=== PATIENT | female | born 1950 | race African-American/Black ===

== ENCOUNTER 2019-03-29 20:26 | Emergency (ER) | payer SELFPAY ==
[2019-03-29] MEDS ORDERED: Sodium Chloride 0.9% 2.5 ML Syringe FLUSH PRN (21:04)
[2019-03-29] MEDS ORDERED: Sodium Chloride 0.9% 10 ML Syringe FLUSH PRN (21:04)
[2019-03-29] MEDS ORDERED: Pantoprazole 40 MG Vial IVPUSH ONE (21:04)
[2019-03-29] MEDS ORDERED: Ketorolac 30 MG/ML SDV IVPUSH ONE (21:04)
[2019-03-29] MEDS ORDERED: Sodium Chloride 0.9% 1,000 ML IV ONE (21:04)
[2019-03-29] MEDS ORDERED: Sodium Chloride 0.9% 20 ML SDV FLUSH STA (21:06)
--- NOTE | 2019-03-29 21:09 | EDM.PDOC ---
ED HPI GENERAL MEDICAL PROBLEM - General Chief Complaint: Abdominal Pain Stated Complaint: PT HAS STOMACH PAIN Time Seen by Provider: 03/29/19 20:38 - History of Present Illness INITIAL COMMENTS - FREE TEXT/NARRATIVE: HISTORY AND PHYSICAL: History of present illness: The patient is a 68-year-old female who does not have a local provider and is visiting here from [facility], she arrived here 2 weeks ago and travels back and forth frequently, and presents with upper abdominal pain for the last 3-Days which is associated with no appetite and early satiety as well as a generalized headache. She's had normal bowel movements that are not black or bloody and no urinary complaints and no flank pain. She has no lower abdominal complaints and has no GI or history. She has only had 1 abdominal surgical history of a . She has a history of type 2 diabetes and hypertension and she took her last dose of metformin today and needs a new prescription. The patient has a history of hypertension but according to the daughter is not on any medication and has not been followed for that and she has the type 2 diabetes for which she only takes the metformin. The daughter is concerned about her above complaints as well as her diabetic management as she says that her fasting blood sugar since she has arrived here from [facility] has been in the low 200s. She says that is not been well controlled for a long period of time. The patient states that she does watch her diet but she cannot recall the last time she had any blood work for her diabetes. She has no polyuria or polydipsia and no dysuria or hematuria. The patient says the pain she is experiencing is in her upper abdomen and does not radiate to the lower abdomen and does not localize right or left but is more epigastric. The daughter says she has had this in the past and saw her provider in [facility] did not do any testing or endoscopy and told her that she had an ulcer. She was not prescribed medications at that time and currently does not take any medications for that. She has not tried any [id number] medications for her discomfort. The patient also says that after she eats she feels very full but she is not nauseated and she gets full more easily and then she feels short of breath. Currently in the ED at rest she does not feel short of breath. The dyspnea is somewhat vague when you asked the patient and it seems to be more associated with her eating. There is nothing new or different about this pain and the patient says it is similar to she was seen in the past in location and character. The daughter says she did not complain of the pain except for the last 3 days. It does not radiate to her back. Review of systems: As per history of present illness and below otherwise all systems reviewed and negative. Past medical history: As per history of present illness and as reviewed below otherwise noncontributory. Surgical history: As per history of present illness and as reviewed below otherwise noncontributory. Social history: No reported history of drug or alcohol abuse. Family history: As per history of present illness and as reviewed below otherwise noncontributory. Physical exam: General: Well-developed well-nourished female who moves easily in the ED without distress and vital signs are noted by me HEENT: Atraumatic, normocephalic, negative for conjunctival pallor or scleral icterus, mucous membranes moist, throat clear, neck supple, nontender, trachea midline. Lungs: Clear to auscultation, breath sounds equal bilaterally, chest nontender. Heart: S1S2, regular rate and rhythm no overt murmurs Abdomen: Soft, nondistended, bowel sounds are hypoactive and there is no tympany on percussion. There is mild tenderness in the epigastrium on deep palpation but no right upper or left upper quadrant tenderness and no other abdominal discomfort on palpation. She does have a old well-healed midline infraumbilical scar Negative for masses or hepatosplenomegaly. Negative for costovertebral tenderness. Pelvis: Stable nontender. Genitourinary: Deferred. Rectal: Deferred. Extremities: Atraumatic, negative for cords or calf pain. Neurovascular unremarkable. Neuro: Awake, alert, oriented. Cranial nerves II through XII unremarkable. Cerebellum unremarkable. Motor and sensory unremarkable throughout. Exam nonfocal. Diagnostics: EKG UA with reflex CBC CMP amylase lipase hemoglobin A1c chest x-ray CT scan of the abdomen and pelvis Therapeutics: IV fluids Protonix Toradol I discussed all testing results with the patient and daughter at bedside. She is aware that we find no lab abnormalities or CAT scan abnormalities to understand why she is having this pain and she is also aware that her diabetes is under good control with a hemoglobin A1c of 6.5. I will refill her prescription for metformin and also start her on Protonix and Carafate as I discussed with them I cannot diagnose ulcer disease and as she was told this in the past she may still have that present causing her discomfort. I've advised close follow-up in the clinic for further testing including endoscopy and/or HIDA scan Impression: Epigastric abdominal pain Type 2 diabetes, needs medication refill Definitive disposition and diagnosis as appropriate pending reevaluation and review of above. Abdomen Pain Score (Numeric/FACES): 10 - Related Data Allergies Allergy/AdvReac Type Severity Reaction Status Date / Time No Known Allergies Allergy Verified 03/29/19 20:44 Home Meds: Home Meds metFORMIN [Glucophage] 1,000 mg PO BID 03/29/19 [History] Past Medical History HEENT History: Reports: None Cardiovascular History: Reports: None Respiratory History: Reports: None Gastrointestinal History: Reports: None Genitourinary History: Reports: None [employer] History: Reports: Musculoskeletal History: Reports: Arthritis Neurological History: Reports: None Psychiatric History: Reports: None Endocrine/Metabolic History: Reports: Diabetes, Type II Insulin Pump Model and Clinical Services Assistant: None Hematologic History: Reports: None Immunologic History: Reports: None Oncologic (Cancer) History: Reports: None Dermatologic History: Reports: None - Infectious Disease History Infectious Disease History: Reports: None - Past Surgical History Head Surgeries/Procedures: Reports: None Female Surgical History: Reports: Section Social & Family History - Family History Family Medical History: Noncontributory - Tobacco Use Smoking Status *Q: Never Smoker - Caffeine Use Caffeine Use: Reports: Tea - Recreational Drug Use Recreational Drug Use: No ED ROS GENERAL - Review of Systems Review Of Systems: ROS reveals no pertinent complaints other than HPI. ED EXAM, GENERAL - Physical Exam Exam: See Below (See dictation) Course - Vital Signs Last Recorded V/S: Last Vital Signs Temp 36.2 C 03/29/19 22:24 Pulse 99 03/29/19 22:24 Resp 18 03/29/19 22:24 BP 163/65 H 03/29/19 22:24 Pulse Ox 99 03/29/19 22:24 - Orders/Labs/Meds Orders: Active Orders 24 hr Category Date Time Status Blood Glucose Check, Bedside [RC] ONETIME Care 03/29/19 21:09 Active EKG Documentation Completion [RC] STAT Care 03/29/19 21:09 Active Sodium Chloride 0.9% [Saline Flush] Med 03/29/19 21:04 Active 10 ml FLUSH ASDIRECTED PRN Sodium Chloride 0.9% [Saline Flush] Med 03/29/19 21:04 Active 2.5 ml FLUSH ASDIRECTED PRN Saline Lock Insert [OM.PC] Stat Oth 03/29/19 21:03 Ordered Medication Orders Sodium Chloride (Saline Flush) 10 ml FLUSH ASDIRECTED PRN PRN Reason: Keep Vein Open Sodium Chloride (Saline Flush) 2.5 ml FLUSH ASDIRECTED PRN PRN Reason: Keep Vein Open Labs: Laboratory Tests 03/29/19 03/29/19 03/29/19 Range/Units 20:40 21:12 21:12 WBC 9.41 (4.0-11.0) K/uL RBC 4.27 L (4.30-5.90) M/uL Hgb 11.9 L (12.0-16.0) g/dL Hct 36.5 (36.0-46.0) % MCV 85.5 (80.0-98.0) fL MCH 27.9 (27.0-32.0) pg MCHC 32.6 (31.0-37.0) g/dL RDW Std Deviation 40.5 (28.0-62.0) fl RDW Coeff of Sheree 13 (11.0-15.0) % Plt Count 239 (150-400) K/uL MPV 11.40 (7.40-12.00) fL Neut % (Auto) 60.6 (48.0-80.0) % Lymph % (Auto) 28.7 (16.0-40.0) % Logan % (Auto) 8.2 (0.0-15.0) % Eos % (Auto) 2.3 (0.0-7.0) % Baso % (Auto) 0.2 (0.0-1.5) % Neut # (Auto) 5.7 (1.4-5.7) K/uL Lymph # (Auto) 2.7 H (0.6-2.4) K/uL Logan # (Auto) 0.8 (0.0-0.8) K/uL Eos # (Auto) 0.2 (0.0-0.7) K/uL Baso # (Auto) 0.0 (0.0-0.1) K/uL Nucleated RBC % 0.0 /100WBC Nucleated RBCs # 0 K/uL Sodium 141 (136-145) mmol/L Potassium 3.7 (3.5-5.1) mmol/L Chloride 102 (98-107) mmol/L Carbon Dioxide 27.8 (21.0-32.0) mmol/L BUN 18 (7.0-18.0) mg/dL Creatinine 0.9 (0.6-1.0) mg/dL Est Cr Clr Drug Dosing 53.83 mL/min Estimated GFR (MDRD) > 60.0 ml/min Glucose 148 H (74-106) mg/dL POC Glucose (60-110) mg/dL Hemoglobin A1c (4.5-6.2) % Calcium 9.3 (8.5-10.1) mg/dL Total Bilirubin 0.4 (0.2-1.0) mg/dL AST 9 L (15-37) IU/L ALT 17 (14-63) IU/L Alkaline Phosphatase 106 (46-116) U/L Total Protein 7.7 (6.4-8.2) g/dL Albumin 3.6 (3.4-5.0) g/dL Globulin 4.1 H (2.6-4.0) g/dL Albumin/Globulin Ratio 0.9 (0.9-1.6) Amylase 61 (25-115) U/L Lipase 143 (73-393) U/L Urine Color YELLOW Urine Appearance CLEAR Urine pH 5.5 (5.0-8.0) Ur Specific [place] 1.025 (1.001-1.035) Urine Protein NEGATIVE (NEGATIVE) mg/dL Urine Glucose (UA) NEGATIVE (NEGATIVE) mg/dL Urine Ketones NEGATIVE (NEGATIVE) mg/dL Urine Occult Blood NEGATIVE (NEGATIVE) Urine Nitrite NEGATIVE (NEGATIVE) Urine Bilirubin NEGATIVE (NEGATIVE) Urine Urobilinogen 0.2 (<2.0) EU/dL Ur Leukocyte Esterase NEGATIVE (NEGATIVE) 03/29/19 03/29/19 Range/Units 21:12 21:12 WBC (4.0-11.0) K/uL RBC (4.30-5.90) M/uL Hgb (12.0-16.0) g/dL Hct (36.0-46.0) % MCV (80.0-98.0) fL MCH (27.0-32.0) pg MCHC (31.0-37.0) g/dL RDW Std Deviation (28.0-62.0) fl RDW Coeff of Sheree (11.0-15.0) % Plt Count (150-400) K/uL MPV (7.40-12.00) fL Neut % (Auto) (48.0-80.0) % Lymph % (Auto) (16.0-40.0) % Logan % (Auto) (0.0-15.0) % Eos % (Auto) (0.0-7.0) % Baso % (Auto) (0.0-1.5) % Neut # (Auto) (1.4-5.7) K/uL Lymph # (Auto) (0.6-2.4) K/uL Logan # (Auto) (0.0-0.8) K/uL Eos # (Auto) (0.0-0.7) K/uL Baso # (Auto) (0.0-0.1) K/uL Nucleated RBC % /100WBC Nucleated RBCs # K/uL Sodium (136-145) mmol/L Potassium (3.5-5.1) mmol/L Chloride (98-107) mmol/L Carbon Dioxide (21.0-32.0) mmol/L BUN (7.0-18.0) mg/dL Creatinine (0.6-1.0) mg/dL Est Cr Clr Drug Dosing mL/min Estimated GFR (MDRD) ml/min Glucose (74-106) mg/dL POC Glucose 129 H (60-110) mg/dL Hemoglobin A1c 6.5 H (4.5-6.2) % Calcium (8.5-10.1) mg/dL Total Bilirubin (0.2-1.0) mg/dL AST (15-37) IU/L ALT (14-63) IU/L Alkaline Phosphatase (46-116) U/L Total Protein (6.4-8.2) g/dL Albumin (3.4-5.0) g/dL Globulin (2.6-4.0) g/dL Albumin/Globulin Ratio (0.9-1.6) Amylase (25-115) U/L Lipase (73-393) U/L Urine Color Urine Appearance Urine pH (5.0-8.0) Ur Specific [place] (1.001-1.035) Urine Protein (NEGATIVE) mg/dL Urine Glucose (UA) (NEGATIVE) mg/dL Urine Ketones (NEGATIVE) mg/dL Urine Occult Blood (NEGATIVE) Urine Nitrite (NEGATIVE) Urine Bilirubin (NEGATIVE) Urine Urobilinogen (<2.0) EU/dL Ur Leukocyte Esterase (NEGATIVE) Meds: Medications Generic Name Dose Route Start Last Admin Trade Name Freq PRN Reason Stop Dose Admin Sodium Chloride 10 ml 03/29/19 21:04 Saline Flush FLUSH ASDIRECTED PRN Keep Vein Open Sodium Chloride 2.5 ml 03/29/19 21:04 Saline Flush FLUSH ASDIRECTED PRN Keep Vein Open Discontinued Medications Generic Name Dose Route Start Last Admin Trade Name Freq PRN Reason Stop Dose Admin Sodium Chloride 1,000 mls @ 999 mls/hr 03/29/19 21:04 03/29/19 21:15 Normal Saline IV 03/29/19 22:04 999 mls/hr STAT ONE Administration Iopamidol 100 ml 03/29/19 22:14 03/29/19 22:14 Isovue Multipack-370 (76%) IVPUSH 03/29/19 22:15 100 ml ONETIME STA Administration Ketorolac Tromethamine 30 mg 03/29/19 21:04 03/29/19 21:16 Toradol IVPUSH 03/29/19 21:05 30 mg ONETIME ONE Administration Pantoprazole Sodium 80 mg 03/29/19 21:04 03/29/19 21:16 Protonix Iv IVPUSH 03/29/19 21:05 80 mg .BOLUS ONE Administration Sodium Chloride 20 ml 03/29/19 21:06 03/29/19 21:16 Normal Saline FLUSH 03/29/19 21:07 20 ml NOW STA Administration Departure - Departure Time of Disposition: 23:03 Disposition: Home, Self-Care 01 Condition: Good Clinical Impression: Abdominal pain Qualifiers: Abdominal location: epigastric Qualified Code(s): R10.13 - Epigastric pain - Discharge Information Referrals: PCP,None [Primary Care Provider] - Forms: ED Department Discharge Additional Instructions: The following information is given to patients seen in the emergency department who are being discharged to home. This information is to outline your options for follow-up care. We provide all patients seen in our emergency department with a follow-up referral. The need for follow-up, as well as the timing and circumstances, are variable depending upon the specifics of your emergency department visit. If you don't have a primary care physician on staff, we will provide you with a referral. We always advise you to contact your personal physician following an emergency department visit to inform them of the circumstance of the visit and for follow-up with them and/or the need for any referrals to a consulting specialist. The emergency department will also refer you to a specialist when appropriate. This referral assures that you have the opportunity for followup care with a specialist. All of these measure are taken in an effort to provide you with optimal care, which includes your followup. Under all circumstances we always encourage you to contact your private physician who remains a resource for coordinating your care. When calling for followup care, please make the office aware that this follow-up is from your recent emergency room visit. If for any reason you are refused follow-up, please contact the [facility] emergency department at and ask to speak to the emergency department charge nurse. [facility] Primary care- Internal Medicine and Family [place] [id number] [place] [id number] [facility] Specialty Care-General Surgery Professional Building [address] [place] [id number] Please call our clinics and schedule follow-up in primary care for management of your diabetes as well as with our surgery clinic to have further testing for this abdominal pain and possible upper endoscopy. Please take medications as prescribed and try to eat a low fat diet avoiding caffeinated products and spicy foods. Return to ER as needed and as discussed - My Orders Last 24 Hours: My Active Orders 03/29/19 21:03 Saline Lock Insert [OM.PC] Stat 03/29/19 21:04 Sodium Chloride 0.9% [Saline Flush] 10 ml FLUSH ASDIRECTED PRN Sodium Chloride 0.9% [Saline Flush] 2.5 ml FLUSH ASDIRECTED PRN 03/29/19 21:09 Blood Glucose Check, Bedside [RC] ONETIME EKG Documentation Completion [RC] STAT - Assessment/Plan Last 24 Hours: My Active Orders 03/29/19 21:03 Saline Lock Insert [OM.PC] Stat 03/29/19 21:04 Sodium Chloride 0.9% [Saline Flush] 10 ml FLUSH ASDIRECTED PRN Sodium Chloride 0.9% [Saline Flush] 2.5 ml FLUSH ASDIRECTED PRN 03/29/19 21:09 Blood Glucose Check, Bedside [RC] ONETIME EKG Documentation Completion [RC] STAT
[2019-03-29 21:40] LABS: HEMOGLOBIN A1C 6.5 % (4.5-6.2)
--- NOTE | 2019-03-29 21:43 | CR ---
Indication: Abdominal pain, shortness of breath Technique: Chest 1 view Comparison: None Findings/Impression: Cardiovascular and mediastinum: Heart size and vasculature are normal in caliber and appearance. Mediastinum is within normal limits. Lungs and pleural space: Lungs are clear. No sign of infiltrate or mass. No sign of pleural effusion. No pneumothorax. Bones and soft tissues: No significant findings. Dictated by Yamini Shaffer MD @ Mar 29 2019 9:40PM Signed by Dr. Yamini Shaffer @ Mar 29 2019 9:41PM
[2019-03-29 21:45] LABS: BLOOD UREA NITROGEN,BUN 18 mg/dL (7.0-18.0); CARBON DIOXIDE,CO2 27.8 mmol/L (21.0-32.0); CHLORIDE,CL 102 mmol/L (98-107); GLUCOSE RANDOM 148 mg/dL (74-106); LIPASE 143 U/L (73-393); POTASSIUM,K 3.7 mmol/L (3.5-5.1); SODIUM,NA 141 mmol/L (136-145)
[2019-03-29] MEDS ORDERED: Iopamidol 755 MG/ML 500 ML Multipack Bottle IVPUSH STA (22:14)
--- NOTE | 2019-03-29 22:47 | CT ---
INDICATION: Abdominal pain after eating, early satiety. TECHNIQUE: CT abdomen and pelvis acquired with 100 cc Isovue 370 intravenous contrast. COMPARISON: None. FINDINGS: Lower chest: Basilar discoid atelectasis. Liver: Normal in contour without focal lesion. Accessory right hepatic vein noted. Gallbladder and bile ducts: Unremarkable. No stones or inflammation. No biliary dilatation. Pancreas: Unremarkable. No mass or inflammation. Spleen: Unremarkable. Normal in size. No masses. Adrenal glands: Slight fusiform prominence of the left adrenal gland. Kidneys: Unremarkable. No masses, stones, or hydronephrosis. GI tract: The stomach is unremarkable. There are no dilated loops of large or small intestine. No localized inflammation. Vasculature: Unremarkable. Pelvis: Unremarkable. Bones: Unremarkable for age. IMPRESSION: Unremarkable abdomen and pelvis CT. No acute findings to explain the patient`s abdominal pain. Please note that all CT scans at this facility use dose modulation, iterative reconstruction, and/or weight-based dosing when appropriate to reduce radiation dose to as low as reasonably achievable. Dictated by Hira Dudley MD @ Mar 29 2019 10:37PM Signed by Dr. Hira Dudley @ Mar 29 2019 10:47PM
== END 2019-03-29 23:10 | disposition home or self-care (01) ==
LOC: MW.ED 20:26
DX: R10.13 Epigastric pain (principal); E11.9 Type 2 diabetes mellitus without complications; Z76.0 Encounter for issue of repeat prescription; I10 Essential (primary) hypertension
CPT/HCPCS: 36415; 71045; 74177; 80053; 81003; 82150; 82962; 83036; 83690; 85025; 93005; 96361; 96374; 96375; 99284; C9113; J1885; J7040; Q9967

== ENCOUNTER 2019-05-06 20:19 | Emergency (ER) | payer SELFPAY ==
[~2019-05-06 20:19] MED LIST: Sodium Chloride 0.9% 10 ML Syringe FLUSH PRN; Sodium Chloride 0.9% 2.5 ML Syringe FLUSH PRN
[2019-05-06] MEDS ORDERED: Ketorolac 30 MG/ML SDV IVPUSH ONE (20:39)
--- NOTE | 2019-05-06 20:40 | EDM.PDOC ---
ED HPI GENERAL MEDICAL PROBLEM - General Chief Complaint: General Stated Complaint: CHEST PAIN Time Seen by Provider: 05/06/19 20:36 Source of Information: Reports: Patient, Family History Limitations: Reports: No Limitations - History of Present Illness INITIAL COMMENTS - FREE TEXT/NARRATIVE: HISTORY AND PHYSICAL: History of present illness: Patient is a 68-year-old female presents to the ED with daughter for chest pain. Patient is visiting from [place], daughter is interpreting for her. Past medical history significant for hypertension and T2DM. Daughter states she has had chest pain for the past 2 days, she is complaining of pain all around her chest that is worse with deep breaths. She reports shortness of breath but this is not new and not worsened. She has had a cough. Denies fevers, chills, vomiting, abdominal pain, diarrhea. Daughter is also concerned about chronic complaints including headache and left wrist pain. Patient states she has history of arthritis, was receiving treatment for his in [place] but does not know what she was taking. Review of systems: As per history of present illness and below otherwise all systems reviewed and negative. Past medical history: As per history of present illness and as reviewed below otherwise noncontributory. Surgical history: As per history of present illness and as reviewed below otherwise noncontributory. Social history: No reported history of drug or alcohol abuse. Family history: As per history of present illness and as reviewed below otherwise noncontributory. Physical exam: General: Patient sitting comfortably in no acute distress and nontoxic appearing HEENT: Atraumatic, normocephalic, pupils reactive, negative for conjunctival pallor or scleral icterus, mucous membranes moist, throat clear, neck supple, nontender, trachea midline. No meningeal signs. Lungs: Clear to auscultation, breath sounds equal bilaterally, pain to palpation of anterior and posterior chest wall. Heart: S1S2, regular, negative for clicks, rubs, or overt murmur. Abdomen: Soft, nondistended, nontender. Negative for masses or hepatosplenomegaly. Negative for costovertebral tenderness. No rigidity, rebound , guarding. Pelvis: Stable nontender. Genitourinary: Deferred. Rectal: Deferred. Extremities: Atraumatic, negative for cords or calf pain. Neurovascular unremarkable. Neuro: Awake, alert, oriented. Cranial nerves II through XII unremarkable. Cerebellum unremarkable. Motor and sensory unremarkable throughout. Exam nonfocal. Notes: Patient reports pain improved with toradol. We discussed admitting to observation for chest pain r/o ACS. Patient declined admission at this time and understands my concerns. I advised follow up in the clinic to address chronic conditions as she will be in the [place] for the next 5 months. Diagnostics: CBC, CMP, troponin, EKG, CXR Therapeutics: 1L NS IV 30mg Toradol IV Prescriptions: Diclofenac Impression: Chest pain Plan: Take medication as instructed Follow up with primary care provider Return to ED as needed as discussed Definitive disposition and diagnosis as appropriate pending reevaluation and review of above. 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: Musculoskeletal History: Reports: Arthritis Neurological History: Reports: None Psychiatric History: Reports: None Endocrine/Metabolic History: Reports: Diabetes, Type II Insulin Pump Model and Director Volunteer Services: None Hematologic History: Reports: None Immunologic History: Reports: None Oncologic (Cancer) History: Reports: None Dermatologic History: Reports: None - Infectious Disease History Infectious Disease History: Reports: None - Past Surgical History Head Surgeries/Procedures: Reports: None Cardiovascular Surgical History: Reports: None Female Surgical History: Reports: Section Endocrine Surgical History: Reports: None Musculoskeletal Surgical History: Reports: None Social & Family History - Family History Family Medical History: Noncontributory - Tobacco Use Smoking Status *Q: Never Smoker Second Hand Smoke Exposure: No - Caffeine Use Caffeine Use: Reports: None - Recreational Drug Use Recreational Drug Use: No ED ROS GENERAL - Review of Systems Review Of Systems: ROS reveals no pertinent complaints other than HPI. ED EXAM, GENERAL - Physical Exam Exam: See Below (see dictation) Course - Vital Signs Last Recorded V/S: Last Vital Signs Temp 96.3 F 05/06/19 20:23 Pulse 95 05/06/19 20:23 Resp 18 05/06/19 20:23 BP 124/107 H 05/06/19 20:23 Pulse Ox 100 05/06/19 20:23 - Orders/Labs/Meds Orders: Active Orders 24 hr Category Date Time Status EKG Documentation Completion [RC] STAT Care 05/06/19 20:19 Active Sodium Chloride 0.9% [Saline Flush] Med 05/06/19 20:19 Active 10 ml FLUSH ASDIRECTED PRN Sodium Chloride 0.9% [Saline Flush] Med 05/06/19 20:19 Active 2.5 ml FLUSH ASDIRECTED PRN Saline Lock Insert [OM.PC] Stat Oth 05/06/19 20:19 Ordered Medication Orders Sodium Chloride (Saline Flush) 10 ml FLUSH ASDIRECTED PRN PRN Reason: Keep Vein Open Sodium Chloride (Saline Flush) 2.5 ml FLUSH ASDIRECTED PRN PRN Reason: Keep Vein Open Labs: Laboratory Tests 05/06/19 05/06/19 05/06/19 Range/Units 20:28 20:28 20:28 WBC 6.61 (4.0-11.0) K/uL RBC 4.32 (4.30-5.90) M/uL Hgb 12.0 (12.0-16.0) g/dL Hct 36.5 (36.0-46.0) % MCV 84.5 (80.0-98.0) fL MCH 27.8 (27.0-32.0) pg MCHC 32.9 (31.0-37.0) g/dL RDW Std Deviation 39.3 (28.0-62.0) fl RDW Coeff of Sheree 13 (11.0-15.0) % Plt Count 289 (150-400) K/uL MPV 10.80 (7.40-12.00) fL Neut % (Auto) 61.0 (48.0-80.0) % Lymph % (Auto) 30.9 (16.0-40.0) % Major % (Auto) 6.1 (0.0-15.0) % Eos % (Auto) 1.7 (0.0-7.0) % Baso % (Auto) 0.3 (0.0-1.5) % Neut # (Auto) 4.0 (1.4-5.7) K/uL Lymph # (Auto) 2.0 (0.6-2.4) K/uL Major # (Auto) 0.4 (0.0-0.8) K/uL Eos # (Auto) 0.1 (0.0-0.7) K/uL Baso # (Auto) 0.0 (0.0-0.1) K/uL Nucleated RBC % 0.0 /100WBC Nucleated RBCs # 0 K/uL INR 0.96 Sodium 140 (136-145) mmol/L Potassium 3.9 (3.5-5.1) mmol/L Chloride 103 (98-107) mmol/L Carbon Dioxide 27.9 (21.0-32.0) mmol/L BUN 16 (7.0-18.0) mg/dL Creatinine 1.0 (0.6-1.0) mg/dL Est Cr Clr Drug Dosing 50.41 mL/min Estimated GFR (MDRD) > 60.0 ml/min Glucose 177 H (74-106) mg/dL Calcium 9.5 (8.5-10.1) mg/dL Total Bilirubin 0.3 (0.2-1.0) mg/dL AST 11 L (15-37) IU/L ALT 17 (14-63) IU/L Alkaline Phosphatase 99 (46-116) U/L Troponin I < 0.050 (0.000-0.056) ng/mL Total Protein 8.6 H (6.4-8.2) g/dL Albumin 3.8 (3.4-5.0) g/dL Globulin 4.8 H (2.6-4.0) g/dL Albumin/Globulin Ratio 0.8 L (0.9-1.6) Meds: Medications Generic Name Dose Route Start Last Admin Trade Name Freq PRN Reason Stop Dose Admin Sodium Chloride 10 ml 05/06/19 20:19 Saline Flush FLUSH ASDIRECTED PRN Keep Vein Open Sodium Chloride 2.5 ml 05/06/19 20:19 Saline Flush FLUSH ASDIRECTED PRN Keep Vein Open Discontinued Medications Generic Name Dose Route Start Last Admin Trade Name Freq PRN Reason Stop Dose Admin Ketorolac Tromethamine 30 mg 05/06/19 20:39 05/06/19 20:55 Toradol IVPUSH 05/06/19 20:40 30 mg ONETIME ONE Administration Departure - Departure Time of Disposition: 21:13 Disposition: Home, Self-Care 01 Condition: Good Clinical Impression: Chest pain - Discharge Information Referrals: PCP,None [Primary Care Provider] - Forms: ED Department Discharge Additional Instructions: The following information is given to patients seen in the emergency department who are being discharged to home. This information is to outline your options for follow-up care. We provide all patients seen in our emergency department with a follow-up referral. The need for follow-up, as well as the timing and circumstances, are variable depending upon the specifics of your emergency department visit. If you don't have a primary care physician on staff, we will provide you with a referral. We always advise you to contact your personal physician following an emergency department visit to inform them of the circumstance of the visit and for follow-up with them and/or the need for any referrals to a consulting specialist. The emergency department will also refer you to a specialist when appropriate. This referral assures that you have the opportunity for follow-up care with a specialist. All of these measure are taken in an effort to provide you with optimal care, which includes your follow-up. Under all circumstances we always encourage you to contact your private physician who remains a resource for coordinating your care. When calling for follow-up care, please make the office aware that this follow-up is from your recent emergency room visit. If for any reason you are refused follow-up, please contact the [facility] Emergency Department at and asked to speak to the emergency department charge nurse. [facility] [address] [place] [id number] [address] Take medication as instructed Follow up with primary care provider Return to ED as needed as discussed - My Orders Last 24 Hours: My Active Orders 05/06/19 20:19 EKG Documentation Completion [RC] STAT Sodium Chloride 0.9% [Saline Flush] 10 ml FLUSH ASDIRECTED PRN Sodium Chloride 0.9% [Saline Flush] 2.5 ml FLUSH ASDIRECTED PRN Saline Lock Insert [OM.PC] Stat - Assessment/Plan Last 24 Hours: My Active Orders 05/06/19 20:19 EKG Documentation Completion [RC] STAT Sodium Chloride 0.9% [Saline Flush] 10 ml FLUSH ASDIRECTED PRN Sodium Chloride 0.9% [Saline Flush] 2.5 ml FLUSH ASDIRECTED PRN Saline Lock Insert [OM.PC] Stat
--- NOTE | 2019-05-06 20:50 | CR ---
INDICATION: Chest Pain TECHNIQUE: Chest 1 view. COMPARISON: Chest radiograph 03/29/2019 FINDINGS: Cardiovascular and mediastinum: Within normal limits. Lungs and pleural space: No focal consolidation. No pleural effusion or pneumothorax. IMPRESSION: No acute pulmonary abnormality. Dictated by Kaci Muir MD @ 05/06/2019 8:48:31 PM Dictated by: Kaci Muir MD @ 05/06/2019 20:48:37 (Electronically Signed)
[2019-05-06 20:59] LABS: BLOOD UREA NITROGEN,BUN 16 mg/dL (7.0-18.0); CARBON DIOXIDE,CO2 27.9 mmol/L (21.0-32.0); CHLORIDE,CL 103 mmol/L (98-107); GLUCOSE RANDOM 177 mg/dL (74-106); POTASSIUM,K 3.9 mmol/L (3.5-5.1); SODIUM,NA 140 mmol/L (136-145)
== END 2019-05-06 21:42 | disposition home or self-care (01) ==
LOC: MW.ED 20:19
DX: R07.9 Chest pain, unspecified (principal); I10 Essential (primary) hypertension; E11.9 Type 2 diabetes mellitus without complications; Z79.84 Long term (current) use of oral hypoglycemic drugs
CPT/HCPCS: 36415; 71045; 80053; 84484; 85025; 85610; 87804; 96374; 99285; J1885

== ENCOUNTER 2019-08-29 19:54 | Emergency (ER) | payer SELFPAY ==
[2019-08-29] MEDS ORDERED: Sodium Chloride 0.9% 1,000 ML IV ONE (21:00)
[2019-08-29 21:12] LABS: BLOOD UREA NITROGEN,BUN 10 mg/dL (7.0-18.0); CARBON DIOXIDE,CO2 31.5 mmol/L (21.0-32.0); CHLORIDE,CL 98 mmol/L (98-107); GLUCOSE RANDOM 414 mg/dL (74-106); LIPASE 233 U/L (73-393); POTASSIUM,K 3.7 mmol/L (3.5-5.1); SODIUM,NA 137 mmol/L (136-145)
[2019-08-29] MEDS ORDERED: Iopamidol 755 Mg/ML 100 ML Bottle IVPUSH ONE (21:44)
--- NOTE | 2019-08-29 22:04 | CR ---
INDICATION: Cough TECHNIQUE: Chest radiograph 2 views COMPARISON: 05/06/19 FINDINGS: Mediastinum: The mediastinum is normal in appearance. The heart silhouette is normal in size and morphology. Lung: Both lungs are unremarkable in appearance. No sign of pleural effusion seen. No pneumothorax is identified. Bone and Soft tissue: Unremarkable for age. IMPRESSION: 1. No acute cardiopulmonary disease is seen. Dictated by: Chavez Vázqeuz MD @ 08/29/2019 22:01:30 (Electronically Signed)
--- NOTE | 2019-08-29 22:06 | CT ---
INDICATION: Right lower quadrant pain TECHNIQUE: CT abdomen and pelvis acquired with IV contrast. 100 cc Isovue 370 COMPARISON: FINDINGS: Lower chest: Unremarkable. Liver: Unremarkable. Spleen: Unremarkable. Pancreas: Unremarkable. Gallbladder and bile ducts: Unremarkable. Kidneys: Unremarkable. Adrenal glands: Unremarkable. GI tract: Colonic fecal retention predominantly involving the ascending and transverse colon. Appendix is normal. Vascular structures: Unremarkable. Lymph nodes: Unremarkable. Miscellaneous: Unremarkable. No free air or significant free fluid. Pelvic Organs: Unremarkable. Bones: Unremarkable for age. IMPRESSION: Normal-appearing appendix. Colonic fecal retention predominantly involving the ascending and transverse colon. Dictated by Andrea Vance MD @ 08/29/2019 10:05:24 PM Please note that all CT scans at this facility use dose modulation, iterative reconstruction, and/or weight-based dosing when appropriate to reduce radiation dose to as low as reasonably achievable. Dictated by: Andrea Vance MD @ 08/29/2019 22:05:35 (Electronically Signed)
[2019-08-29] MEDS ORDERED: Insulin NPH/Insulin Regular,Human 70-30 100 Units/ML 10 ML Vial SUBCUT ONE (22:18)
--- NOTE | 2019-08-29 22:24 | EDM.PDOC ---
ED HPI GENERAL MEDICAL PROBLEM - General Chief Complaint: Diabetic Complaint Stated Complaint: ABDOMINAL PAIN, BLOOD SUGAR IS HIGH Time Seen by Provider: 08/29/19 20:19 Source of Information: Reports: Patient, Family History Limitations: Reports: Language Barrier - History of Present Illness INITIAL COMMENTS - FREE TEXT/NARRATIVE: CC HPI: This is a 68-year-old female who is from [facility]. Patient is a known diabetic who has primary care here in this town. She takes metformin for this. Over the past few days she has had no appetite and has been noticing elevated blood sugars. She has no polyuria polydipsia vomiting or fever. She does have diffuse abdominal crampy pain and is constipated. She has been coughing of late. No respiratory distress. She presents with her adult daughter who translates for her. PMHX/PSHX: Medical history of diabetes. Past surgical history negative Social History: Negative for tobacco, negative for alcohol, negative for street drugs or marijuana Family history: Hypertension ROS: see chart PE: VS afebrile vital signs stable General: No apparent distress Head: Atraumatic normocephalic no lumps bumps or bruises Eyes: EOMI PERRLA Ears: TMs intact no hemotympanum no signs of infection no mastoid tenderness Nose: No epistaxis nares patent no septal wall hematoma Throat: No pharyngeal erythema or exudate no tonsillar enlargement Neck: Supple, no cervical lymphadenopathy Chest wall: No point tenderness Heart: Regular rate and rhythm without murmur gallop or rub Lungs: Clear to auscultation and percussion without rales rhonchi or wheeze Abdomen: Soft nontender nondistended without guarding rigidity or rebound Neck: No spinal point tenderness full range of motion in all 6 directions Back: No spinal paraspinal or CVA tenderness Extremities: full rom through out. no effusions skin: Warm dry intact no rashes neurologic: cranial nerves II through XII intact. No focal motor or sensory deficits noted MDM: Differential diagnosis: Appendicitis bowel obstruction mesenteric ischemia intussusception cholecystitis pancreatitis diabetic ketoacidosis urinary tract infection pyelonephritis, pneumonia. ED course: CBC comprehensive metabolic profile lipase are negative except for a blood sugar of 400. CO2 normal. No anion gap. No urine ketones. Patient is not actively vomiting and has a benign abdomen on serial examination. Her lactate is normal. CT scan of her abdomen and pelvis are negative chest x-ray negative. No signs of appendicitis or any other intra-abdominal emergency. Patient has no signs of diabetic ketoacidosis. She was given 4 units of subcutaneous insulin. She will take her normal metformin tomorrow and check her blood sugars 3 times daily and follow-up with her primary care doctor to see if her diabetic medication regimen needs to be changed. I do notice copious stool throughout her colon so I think constipation may be the cause of her abdominal discomfort. We will place her on some stool softeners. 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: Musculoskeletal History: Reports: Arthritis Neurological History: Reports: None Psychiatric History: Reports: Anxiety Endocrine/Metabolic History: Reports: Diabetes, Type II Insulin 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 Hematologic History: Reports: None Immunologic History: Reports: None Oncologic (Cancer) History: Reports: None Dermatologic History: Reports: None - Infectious Disease History Infectious Disease History: Reports: None - Past Surgical History Head Surgeries/Procedures: Reports: None Cardiovascular Surgical History: Reports: None Female Surgical History: Reports: Section Endocrine Surgical History: Reports: None Musculoskeletal Surgical History: Reports: None Social & Family History - Family History Family Medical History: Noncontributory - Tobacco Use Smoking Status *Q: Never Smoker Second Hand Smoke Exposure: No - Caffeine Use Caffeine Use: Reports: None - Recreational Drug Use Recreational Drug Use: No ED ROS GENERAL - Review of Systems Review Of Systems: Comprehensive ROS is negative, except as noted in HPI. ED EXAM GENERAL NO PERIP PULSE - Physical Exam Exam: See Below Text/Narrative:: See my dictation Exam Limited By: No Limitations Course - Vital Signs Last Recorded V/S: Last Vital Signs Temp 36.6 C 08/29/19 20:22 Pulse 90 08/29/19 20:22 Resp 18 08/29/19 20:22 BP 134/81 08/29/19 20:22 Pulse Ox 98 08/29/19 20:22 - Orders/Labs/Meds Orders: Active Orders 24 hr Category Date Time Status Insulin NPH/Insulin Reg,Human [NovoLIN 70-30] Med 08/29/19 22:18 Once 4 unit SUBCUT ONETIME ONE Labs: Laboratory Tests 08/29/19 08/29/19 08/29/19 Range/Units 20:32 20:32 20:32 WBC 8.43 (4.0-11.0) K/uL RBC 4.28 L (4.30-5.90) M/uL Hgb 12.1 (12.0-16.0) g/dL Hct 35.7 L (36.0-46.0) % MCV 83.4 (80.0-98.0) fL MCH 28.3 (27.0-32.0) pg MCHC 33.9 (31.0-37.0) g/dL RDW Std Deviation 39.8 (28.0-62.0) fl RDW Coeff of Sheree 13 (11.0-15.0) % Plt Count 237 (150-400) K/uL MPV 12.00 (7.40-12.00) fL Neut % (Auto) 62.0 (48.0-80.0) % Lymph % (Auto) 29.3 (16.0-40.0) % [place] % (Auto) 6.2 (0.0-15.0) % Eos % (Auto) 2.3 (0.0-7.0) % Baso % (Auto) 0.2 (0.0-1.5) % Neut # (Auto) 5.2 (1.4-5.7) K/uL Lymph # (Auto) 2.5 H (0.6-2.4) K/uL [place] # (Auto) 0.5 (0.0-0.8) K/uL Eos # (Auto) 0.2 (0.0-0.7) K/uL Baso # (Auto) 0.0 (0.0-0.1) K/uL Nucleated RBC % 0.0 /100WBC Nucleated RBCs # 0 K/uL VBG pH (7.31-7.41) VBG pCO2 (35-45) mmHG VBG pO2 (30-40) mmHG VBG HCO3 (22-30) mEq/L VBG Total CO2 (41-51) mmol/L VBG Base Excess (-3.0-3.0) Sodium 137 (136-145) mmol/L Potassium 3.7 (3.5-5.1) mmol/L Chloride 98 (98-107) mmol/L Carbon Dioxide 31.5 (21.0-32.0) mmol/L BUN 10 (7.0-18.0) mg/dL Creatinine 1.0 (0.6-1.0) mg/dL Est Cr Clr Drug Dosing TNP Estimated GFR (MDRD) > 60.0 ml/min Glucose 414 H (74-106) mg/dL Calcium 9.3 (8.5-10.1) mg/dL Total Bilirubin 0.3 (0.2-1.0) mg/dL AST 13 L (15-37) IU/L ALT 22 (14-63) IU/L Alkaline Phosphatase 120 H (46-116) U/L Total Protein 8.0 (6.4-8.2) g/dL Albumin 3.6 (3.4-5.0) g/dL Globulin 4.4 H (2.6-4.0) g/dL Albumin/Globulin Ratio 0.8 L (0.9-1.6) Lipase 233 (73-393) U/L Urine Color YELLOW Urine Appearance CLEAR Urine pH 6.5 (5.0-8.0) Ur Specific [place] 1.010 (1.001-1.035) Urine Protein NEGATIVE (NEGATIVE) mg/dL Urine Glucose (UA) >=1000 (NEGATIVE) mg/dL Urine Ketones NEGATIVE (NEGATIVE) mg/dL Urine Occult Blood NEGATIVE (NEGATIVE) Urine Nitrite NEGATIVE (NEGATIVE) Urine Bilirubin NEGATIVE (NEGATIVE) Urine Urobilinogen 0.2 (<2.0) EU/dL Ur Leukocyte Esterase NEGATIVE (NEGATIVE) 08/29/19 Range/Units 20:35 WBC (4.0-11.0) K/uL RBC (4.30-5.90) M/uL Hgb (12.0-16.0) g/dL Hct (36.0-46.0) % MCV (80.0-98.0) fL MCH (27.0-32.0) pg MCHC (31.0-37.0) g/dL RDW Std Deviation (28.0-62.0) fl RDW Coeff of Sheree (11.0-15.0) % Plt Count (150-400) K/uL MPV (7.40-12.00) fL Neut % (Auto) (48.0-80.0) % Lymph % (Auto) (16.0-40.0) % [place] % (Auto) (0.0-15.0) % Eos % (Auto) (0.0-7.0) % Baso % (Auto) (0.0-1.5) % Neut # (Auto) (1.4-5.7) K/uL Lymph # (Auto) (0.6-2.4) K/uL [place] # (Auto) (0.0-0.8) K/uL Eos # (Auto) (0.0-0.7) K/uL Baso # (Auto) (0.0-0.1) K/uL Nucleated RBC % /100WBC Nucleated RBCs # K/uL VBG pH 7.42 H (7.31-7.41) VBG pCO2 49 H (35-45) mmHG VBG pO2 35 (30-40) mmHG VBG HCO3 32 H (22-30) mEq/L VBG Total CO2 29 L (41-51) mmol/L VBG Base Excess 6.0 H (-3.0-3.0) Sodium (136-145) mmol/L Potassium (3.5-5.1) mmol/L Chloride (98-107) mmol/L Carbon Dioxide (21.0-32.0) mmol/L BUN (7.0-18.0) mg/dL Creatinine (0.6-1.0) mg/dL Est Cr Clr Drug Dosing Estimated GFR (MDRD) ml/min Glucose (74-106) mg/dL Calcium (8.5-10.1) mg/dL Total Bilirubin (0.2-1.0) mg/dL AST (15-37) IU/L ALT (14-63) IU/L Alkaline Phosphatase (46-116) U/L Total Protein (6.4-8.2) g/dL Albumin (3.4-5.0) g/dL Globulin (2.6-4.0) g/dL Albumin/Globulin Ratio (0.9-1.6) Lipase (73-393) U/L Urine Color Urine Appearance Urine pH (5.0-8.0) Ur Specific [place] (1.001-1.035) Urine Protein (NEGATIVE) mg/dL Urine Glucose (UA) (NEGATIVE) mg/dL Urine Ketones (NEGATIVE) mg/dL Urine Occult Blood (NEGATIVE) Urine Nitrite (NEGATIVE) Urine Bilirubin (NEGATIVE) Urine Urobilinogen (<2.0) EU/dL Ur Leukocyte Esterase (NEGATIVE) Meds: Medications Discontinued Medications Generic Name Dose Route Start Last Admin Trade Name Freq PRN Reason Stop Dose Admin Sodium Chloride 1,000 mls @ 999 mls/hr 08/29/19 21:00 08/29/19 21:07 Normal Saline IV 08/29/19 22:00 999 mls/hr .Bolus ONE Administration Iopamidol 100 ml 08/29/19 21:44 08/29/19 21:44 Isovue-370 (76%) IVPUSH 08/29/19 21:45 100 ml ONETIME ONE Administration Departure - Departure Time of Disposition: 22:25 Disposition: Home, Self-Care 01 Clinical Impression: Hyperglycemia - Discharge Information Prescriptions: Docusate Sodium [Colace] 100 mg PO DAILY #20 cap Instructions: Blood Glucose Monitoring, Adult, Hyperglycemia Referrals: Jennifer Lorenz DO [Primary Care Provider] - Forms: ED Department Discharge Additional Instructions: Take your normal dose of metformin in the morning. Call your primary care doctor to arrange close outpatient follow-up. Check your blood sugar before each meal and at bedtime and keep a record of this to take to your primary care doctor's office. Return for vomiting worsening pain or any other problems. If your blood sugars are high tomorrow call your primary care doctor to ask how they would have you manage that. Push fluids. Take Metamucil on a daily basis. Sepsis Event Note - Evaluation Sepsis Screening Result: No Definite Risk - Focused Exam Vital Signs: Vital Signs Temp Pulse Resp BP Pulse Ox 08/29/19 20:22 36.6 C 90 18 134/81 98 Date Exam was Performed: 08/29/19 Time Exam was Performed: 22:18 - My Orders Last 24 Hours: My Active Orders 08/29/19 22:18 Insulin NPH/Insulin Reg,Human [NovoLIN 70-30] 4 unit SUBCUT ONETIME ONE - Assessment/Plan Last 24 Hours: My Active Orders 08/29/19 22:18 Insulin NPH/Insulin Reg,Human [NovoLIN 70-30] 4 unit SUBCUT ONETIME ONE
[2019-08-29] MEDS ORDERED: Insulin Regular, Human 100 Units/ML 10 ML Vial IVPUSH ONE (22:35)
[2019-08-29] MEDS ORDERED: Insulin Regular, Human 100 Units/ML 10 ML Vial SUBCUT STA (22:37)
== END 2019-08-29 23:01 | disposition home or self-care (01) ==
LOC: MW.ED 19:54
DX: E11.65 Type 2 diabetes mellitus with hyperglycemia (principal); K59.00 Constipation, unspecified; I10 Essential (primary) hypertension; M19.90 Unspecified osteoarthritis, unspecified site; Z79.84 Long term (current) use of oral hypoglycemic drugs; Z79.899 Other long term (current) drug therapy
CPT/HCPCS: 71046; 74177; 80053; 81003; 82803; 82962; 83690; 85025; 96360; 99284; J7030; Q9967; J1815-GY

== ENCOUNTER 2020-01-29 20:39 | Emergency (ER) | payer SELFPAY ==
[2020-01-29] MEDS ORDERED: Sodium Chloride 0.9% 2.5 ML Syringe FLUSH PRN (21:09)
[2020-01-29] MEDS ORDERED: Sodium Chloride 0.9% 10 ML Syringe FLUSH PRN (21:09)
--- NOTE | 2020-01-29 21:37 | EDM.PDOC ---
ED HPI GENERAL MEDICAL PROBLEM - General Chief Complaint: Gastrointestinal Problem Stated Complaint: vomiting low blood sugar Time Seen by Provider: 01/29/20 20:58 - History of Present Illness INITIAL COMMENTS - FREE TEXT/NARRATIVE: 69-year-old female with history of malaria (treated), UTI, DM 2 was brought in by her daughter for headache. She is visiting from the [place] of [place], she has been here since March 2019, she speaks Mand[place]. Today she notes a gradual onset frontal headache, associated with 4 episodes of nonbloody and nonbilious vomiting. Associated with generalized malaise, myalgia. She denies photophobia or phonophobia, neck pain or neck stiffness, focal numbness or weakness, chest pain, shortness of breath, cough, abdominal pain, dysuria, back pain. At 5PM the daughter checked her blood sugar, which was 400, she then gave her metformin and 4 units of insulin, at 8 PM her BG = 66 and she was given soda. The daughter then decided to bring her here for checkup. ROS: A 10-point review of systems, other than pertinent positives and negatives as stated per HPI, is otherwise negative PHYSICAL EXAM General: AOx4, GCS = 15, No distress, BG = 207 HEENT: dry mucous membrane Neck: supple, no meningismus, no Kernig or Brudzinski Cardiac: S1S2 RRR Respiratory: CTAB, no crackles or rales, no wheezing Abdomen: Soft, epigastric tenderness, no rebound or guarding, nondistended, no pulsatile mass. Back: nontender Musculoskeletal: NVI distally, no deformity Neuro: No focal deficits. Generalized Pain Score (Numeric/FACES): 10 - Related Data Allergies Allergy/AdvReac Type Severity Reaction Status Date / Time No Known Allergies Allergy Verified 01/29/20 20:52 Home Meds: Home Meds metFORMIN [Glucophage] 1,000 mg PO BID 03/29/19 [History] Past Medical History HEENT History: Reports: None Cardiovascular History: Reports: Hypertension Respiratory History: Reports: None Gastrointestinal History: Reports: None Genitourinary History: Reports: None MIMEOGRAPHER History: Reports: Musculoskeletal History: Reports: Arthritis Neurological History: Reports: None Psychiatric History: Reports: Anxiety Endocrine/Metabolic History: Reports: Diabetes, Type II Insulin Pump Model and Warm In: None Hematologic History: Reports: None Immunologic History: Reports: None Oncologic (Cancer) History: Reports: None Dermatologic History: Reports: None - Infectious Disease History Infectious Disease History: Reports: None - Past Surgical History Head Surgeries/Procedures: Reports: None Cardiovascular Surgical History: Reports: None Female Surgical History: Reports: Section Endocrine Surgical History: Reports: None Musculoskeletal Surgical History: Reports: None Social & Family History - Family History Family Medical History: Noncontributory - Tobacco Use Smoking Status *Q: Never Smoker Second Hand Smoke Exposure: No - Caffeine Use Caffeine Use: Reports: None - Recreational Drug Use Recreational Drug Use: No ED ROS GENERAL - Review of Systems Review Of Systems: Comprehensive ROS is negative, except as noted in HPI. (see dictation) ED EXAM, GENERAL - Physical Exam Exam: See Below (see dictation) EKG INTERPRETATION EKG Interpretation Comments: 79 Bpm, NSR, normal QRS interval, no STEMI. EKG and rhythm strip interpreted by me at [id number] Course - Vital Signs Last Recorded V/S: Last Vital Signs Temp 96.2 F L 01/29/20 20:53 Pulse 78 01/29/20 22:33 Resp 14 01/29/20 22:33 BP 129/83 01/29/20 22:33 Pulse Ox 100 01/29/20 22:33 - Orders/Labs/Meds Orders: Active Orders 24 hr Category Date Time Status Cardiac Monitoring [RC] . DIRECTED Care 01/29/20 21:09 Active EKG Documentation Completion [RC] STAT Care 01/29/20 21:10 Active Pulse Oximetry [RC] ASDIRECTED Care 01/29/20 21:09 Active MISC TEST BENITEZ ONLY Routine Lab 01/29/20 22:11 Received Sodium Chloride 0.9% [Saline Flush] Med 01/29/20 21:09 Active 10 ml FLUSH ASDIRECTED PRN Sodium Chloride 0.9% [Saline Flush] Med 01/29/20 21:09 Active 2.5 ml FLUSH ASDIRECTED PRN Saline Lock Insert [OM.PC] Stat Oth 01/29/20 21:09 Ordered Medication Orders Sodium Chloride (Saline Flush) 10 ml FLUSH ASDIRECTED PRN PRN Reason: Keep Vein Open Sodium Chloride (Saline Flush) 2.5 ml FLUSH ASDIRECTED PRN PRN Reason: Keep Vein Open Labs: Laboratory Tests 01/29/20 01/29/20 01/29/20 Range/Units 21:25 21:30 21:30 WBC 9.98 (4.0-11.0) K/uL RBC 4.25 L (4.30-5.90) M/uL Hgb 11.8 L (12.0-16.0) g/dL Hct 36.1 (36.0-46.0) % MCV 84.9 (80.0-98.0) fL MCH 27.8 (27.0-32.0) pg MCHC 32.7 (31.0-37.0) g/dL RDW Std Deviation 39.4 (28.0-62.0) fl RDW Coeff of Sheree 13 (11.0-15.0) % Plt Count 218 (150-400) K/uL MPV 11.90 (7.40-12.00) fL Neut % (Auto) 80.7 H (48.0-80.0) % Lymph % (Auto) 12.5 L (16.0-40.0) % [place] % (Auto) 5.9 (0.0-15.0) % Eos % (Auto) 0.7 (0.0-7.0) % Baso % (Auto) 0.2 (0.0-1.5) % Neut # (Auto) 8.1 H (1.4-5.7) K/uL Lymph # (Auto) 1.3 (0.6-2.4) K/uL [place] # (Auto) 0.6 (0.0-0.8) K/uL Eos # (Auto) 0.1 (0.0-0.7) K/uL Baso # (Auto) 0.0 (0.0-0.1) K/uL Nucleated RBC % 0.0 /100WBC Nucleated RBCs # 0 K/uL Smear Path Review Lactate (0.20-2.00) mmol/L Sodium 138 (136-145) mmol/L Potassium 3.7 (3.5-5.1) mmol/L Chloride 100 (98-107) mmol/L Carbon Dioxide 28.3 (21.0-32.0) mmol/L BUN 12 (7.0-18.0) mg/dL Creatinine 0.8 (0.6-1.0) mg/dL Est Cr Clr Drug Dosing 59.72 mL/min Estimated GFR (MDRD) > 60.0 ml/min Glucose 218 H (74-106) mg/dL POC Glucose 207 H (60-110) mg/dL Hemoglobin A1c (4.5-6.2) % Calcium 9.5 (8.5-10.1) mg/dL Phosphorus 2.8 (2.6-4.7) mg/dL Magnesium 1.4 L (1.8-2.4) mg/dL Total Bilirubin 0.4 (0.2-1.0) mg/dL AST 23 (15-37) IU/L ALT 29 (14-63) IU/L Alkaline Phosphatase 164 H (46-116) U/L Troponin I < 0.050 (0.000-0.056) ng/mL Total Protein 7.6 (6.4-8.2) g/dL Albumin 3.6 (3.4-5.0) g/dL Globulin 4.0 (2.6-4.0) g/dL Albumin/Globulin Ratio 0.9 (0.9-1.6) Lipase 129 (73-393) U/L Urine Color Urine Appearance Urine pH (5.0-8.0) Ur Specific [place] (1.001-1.035) Urine Protein (NEGATIVE) mg/dL Urine Glucose (UA) (NEGATIVE) mg/dL Urine Ketones (NEGATIVE) mg/dL Urine Occult Blood (NEGATIVE) Urine Nitrite (NEGATIVE) Urine Bilirubin (NEGATIVE) Urine Urobilinogen (<2.0) EU/dL Ur Leukocyte Esterase (NEGATIVE) Urine RBC (0-2/HPF) Urine WBC (0-5/HPF) Ur Epithelial Cells (NONE-FEW) Amorphous Sediment (NEGATIVE) Urine Bacteria (NEGATIVE) Urine Mucus (NONE-MOD) 01/29/20 01/29/20 01/29/20 Range/Units 21:30 21:30 21:30 WBC (4.0-11.0) K/uL RBC (4.30-5.90) M/uL Hgb (12.0-16.0) g/dL Hct (36.0-46.0) % MCV (80.0-98.0) fL MCH (27.0-32.0) pg MCHC (31.0-37.0) g/dL RDW Std Deviation (28.0-62.0) fl RDW Coeff of Sheree (11.0-15.0) % Plt Count (150-400) K/uL MPV (7.40-12.00) fL Neut % (Auto) (48.0-80.0) % Lymph % (Auto) (16.0-40.0) % [place] % (Auto) (0.0-15.0) % Eos % (Auto) (0.0-7.0) % Baso % (Auto) (0.0-1.5) % Neut # (Auto) (1.4-5.7) K/uL Lymph # (Auto) (0.6-2.4) K/uL [place] # (Auto) (0.0-0.8) K/uL Eos # (Auto) (0.0-0.7) K/uL Baso # (Auto) (0.0-0.1) K/uL Nucleated RBC % /100WBC Nucleated RBCs # K/uL Smear Path Review Lactate 2.6 H* (0.20-2.00) mmol/L Sodium (136-145) mmol/L Potassium (3.5-5.1) mmol/L Chloride (98-107) mmol/L Carbon Dioxide (21.0-32.0) mmol/L BUN (7.0-18.0) mg/dL Creatinine (0.6-1.0) mg/dL Est Cr Clr Drug Dosing mL/min Estimated GFR (MDRD) ml/min Glucose (74-106) mg/dL POC Glucose (60-110) mg/dL Hemoglobin A1c 13.1 H (4.5-6.2) % Calcium (8.5-10.1) mg/dL Phosphorus (2.6-4.7) mg/dL Magnesium (1.8-2.4) mg/dL Total Bilirubin (0.2-1.0) mg/dL AST (15-37) IU/L ALT (14-63) IU/L Alkaline Phosphatase (46-116) U/L Troponin I (0.000-0.056) ng/mL Total Protein (6.4-8.2) g/dL Albumin (3.4-5.0) g/dL Globulin (2.6-4.0) g/dL Albumin/Globulin Ratio (0.9-1.6) Lipase (73-393) U/L Urine Color YELLOW Urine Appearance CLEAR Urine pH 5.5 (5.0-8.0) Ur Specific [place] 1.025 (1.001-1.035) Urine Protein TRACE H (NEGATIVE) mg/dL Urine Glucose (UA) 500 H (NEGATIVE) mg/dL Urine Ketones NEGATIVE (NEGATIVE) mg/dL Urine Occult Blood NEGATIVE (NEGATIVE) Urine Nitrite NEGATIVE (NEGATIVE) Urine Bilirubin NEGATIVE (NEGATIVE) Urine Urobilinogen 0.2 (<2.0) EU/dL Ur Leukocyte Esterase NEGATIVE (NEGATIVE) Urine RBC 0-2 (0-2/HPF) Urine WBC 1-3 (0-5/HPF) Ur Epithelial Cells FEW (NONE-FEW) Amorphous Sediment LIGHT (NEGATIVE) Urine Bacteria FEW (NEGATIVE) Urine Mucus LIGHT (NONE-MOD) 01/29/20 01/29/20 Range/Units 22:11 23:16 WBC (4.0-11.0) K/uL RBC (4.30-5.90) M/uL Hgb (12.0-16.0) g/dL Hct (36.0-46.0) % MCV (80.0-98.0) fL MCH (27.0-32.0) pg MCHC (31.0-37.0) g/dL RDW Std Deviation (28.0-62.0) fl RDW Coeff of Sheree (11.0-15.0) % Plt Count (150-400) K/uL MPV (7.40-12.00) fL Neut % (Auto) (48.0-80.0) % Lymph % (Auto) (16.0-40.0) % [place] % (Auto) (0.0-15.0) % Eos % (Auto) (0.0-7.0) % Baso % (Auto) (0.0-1.5) % Neut # (Auto) (1.4-5.7) K/uL Lymph # (Auto) (0.6-2.4) K/uL [place] # (Auto) (0.0-0.8) K/uL Eos # (Auto) (0.0-0.7) K/uL Baso # (Auto) (0.0-0.1) K/uL Nucleated RBC % /100WBC Nucleated RBCs # K/uL Smear Path Review SENT TO PATHOLOGY Lactate 1.8 (0.20-2.00) mmol/L Sodium (136-145) mmol/L Potassium (3.5-5.1) mmol/L Chloride (98-107) mmol/L Carbon Dioxide (21.0-32.0) mmol/L BUN (7.0-18.0) mg/dL Creatinine (0.6-1.0) mg/dL Est Cr Clr Drug Dosing mL/min Estimated GFR (MDRD) ml/min Glucose (74-106) mg/dL POC Glucose (60-110) mg/dL Hemoglobin A1c (4.5-6.2) % Calcium (8.5-10.1) mg/dL Phosphorus (2.6-4.7) mg/dL Magnesium (1.8-2.4) mg/dL Total Bilirubin (0.2-1.0) mg/dL AST (15-37) IU/L ALT (14-63) IU/L Alkaline Phosphatase (46-116) U/L Troponin I (0.000-0.056) ng/mL Total Protein (6.4-8.2) g/dL Albumin (3.4-5.0) g/dL Globulin (2.6-4.0) g/dL Albumin/Globulin Ratio (0.9-1.6) Lipase (73-393) U/L Urine Color Urine Appearance Urine pH (5.0-8.0) Ur Specific [place] (1.001-1.035) Urine Protein (NEGATIVE) mg/dL Urine Glucose (UA) (NEGATIVE) mg/dL Urine Ketones (NEGATIVE) mg/dL Urine Occult Blood (NEGATIVE) Urine Nitrite (NEGATIVE) Urine Bilirubin (NEGATIVE) Urine Urobilinogen (<2.0) EU/dL Ur Leukocyte Esterase (NEGATIVE) Urine RBC (0-2/HPF) Urine WBC (0-5/HPF) Ur Epithelial Cells (NONE-FEW) Amorphous Sediment (NEGATIVE) Urine Bacteria (NEGATIVE) Urine Mucus (NONE-MOD) Meds: Medications Generic Name Dose Route Start Last Admin Trade Name Ken PRN Reason Stop Dose Admin Sodium Chloride 10 ml 01/29/20 21:09 Saline Flush FLUSH ASDIRECTED PRN Keep Vein Open Sodium Chloride 2.5 ml 01/29/20 21:09 Saline Flush FLUSH ASDIRECTED PRN Keep Vein Open Discontinued Medications Generic Name Dose Route Start Last Admin Trade Name Ken PRN Reason Stop Dose Admin Diphenhydramine HCl 50 mg 01/29/20 22:03 01/29/20 22:16 Benadryl IVPUSH 01/29/20 22:04 50 mg ONETIME ONE Administration Lactated Ringer's 1,000 mls @ 999 mls/hr 01/29/20 22:03 01/29/20 22:11 Ringers, Lactated IV 01/29/20 23:03 999 mls/hr .BOLUS ONE Administration Pantoprazole Sodium 40 mg/ 20 mls @ 420 mls/hr 01/29/20 22:04 01/29/20 22:14 Sodium Chloride IVPUSH 01/29/20 22:06 420 mls/hr ONETIME ONE Administration Iopamidol 100 ml 01/29/20 22:54 01/29/20 22:55 Isovue-370 (76%) IVPUSH 01/29/20 22:55 100 ml ONETIME ONE Administration Ketorolac Tromethamine 30 mg 01/29/20 22:23 01/29/20 22:32 Toradol IVPUSH 01/29/20 22:24 30 mg ONETIME ONE Administration Metoclopramide HCl 10 mg 01/29/20 22:03 01/29/20 22:13 Reglan IVPUSH 01/29/20 22:04 10 mg ONETIME ONE Administration - Re-Assessments/Exams Free Text/Narrative Re-Assessment/Exam: 01/29/20 0000 After IVF, toradol, reglan, benadryl and a prolonged observation period in the ER, her headache improved and she is stable for discharge. I performed a repeat examination and the patient has not demonstrated any new abnormal findings. Patient exhibits normal vital signs and has exhibited a normal gait. I advised the patient to return to the ER for reevaluation if symptoms worsened, and to follow up with their PCP within 2-3 days. MEDICAL DECISION MAKING: I reviewed the patients past medical records, lab and radiographic findings. I discussed the case with the patient. My differential diagnosis included: Dengue fever, migraine headache, Chikungunya, malaria, Ebola. Patient did complain of generalized malaise and headache and myalgia. He did exhibit epigastric tenderness on my exam, however she does not have a fever, my suspicion is low for dengue fever. I do not suspect Chikungunya, she does not have a rash. She has no complaints of cough or dyspnea or sputum p roduction. I do not suspect pneumonia. Despite complaints of frontal headache, her neck was not stiff, she had no nuchal rigidity, she had no fever, photophobia, neck stiffness, I do not suspect meningitis. She does not exhibit SIRS criteria, I do not suspect sepsis. She does not have petechial hemorrhages in the skin or mucosal membranes, I do not suspect viral hemorrhagic fever. Malaria is very prevalent in the country of [place], she did complain of generalized malaise, headache, vomiting, tenderness in her upper abdominal pain, referral smear and malaria PCR was sent out for testing and results are pending. Ebola is low on my differential given that there are no positive cases in the [place] of [place]. Her headache is not described as the worst headache of her life, it is not sudden in onset, and not thunderclap in nature. There is no fever, neck pain or stiffness, or focal numbness or weakness. Departure - Departure Time of Disposition: 23:55 Disposition: Home, Self-Care 01 Condition: Good Clinical Impression: Vomiting, Headache - Discharge Information *PRESCRIPTION DRUG MONITORING PROGRAM REVIEWED*: Not Applicable *COPY OF PRESCRIPTION DRUG MONITORING REPORT IN PATIENT EDWARD: Not Applicable Instructions: Nausea and Vomiting, Adult, General Headache Without Cause Referrals: PCP,None [Primary Care Provider] - 1 Week Forms: ED Department Discharge Additional Instructions: The following information is given to patients seen in the emergency department who are being discharged to home. This information is to outline your options for follow-up care. We provide all patients seen in our emergency department with a follow-up referral. The need for follow-up, as well as the timing and circumstances, are variable depending upon the specifics of your emergency department visit. If you don't have a primary care physician on staff, we will provide you with a referral. We always advise you to contact your personal physician following an emergency department visit to inform them of the circumstance of the visit and for follow-up with them and/or the need for any referrals to a consulting specialist. The emergency department will also refer you to a specialist when appropriate. This referral assures that you have the opportunity for follow-up care with a specialist. All of these measure are taken in an effort to provide you with optimal care, which includes your follow-up. Under all circumstances we always encourage you to contact your private physician who remains a resource for coordinating your care. When calling for follow-up care, please make the office aware that this follow-up is from your recent emergency room visit. If for any reason you are refused follow-up, please contact the [facility] Emergency Department at and asked to speak to the emergency department charge nurse. If you do not have a primary care doctor, please follow up with the clinics below within 3-5 days. [facility] [address] [place] [id number] [facility] [address] [place] [id number] Sepsis Event Note (ED) - Evaluation Sepsis Screening Result: No Definite Risk - Focused Exam Vital Signs: Vital Signs Temp Pulse Resp BP Pulse Ox 01/29/20 22:33 78 14 129/83 100 01/29/20 20:53 96.2 F L 82 18 123/70 99 - My Orders Last 24 Hours: My Active Orders 01/29/20 21:09 Cardiac Monitoring [RC] . DIRECTED Pulse Oximetry [RC] ASDIRECTED Sodium Chloride 0.9% [Saline Flush] 10 ml FLUSH ASDIRECTED PRN Sodium Chloride 0.9% [Saline Flush] 2.5 ml FLUSH ASDIRECTED PRN Saline Lock Insert [OM.PC] Stat 01/29/20 21:10 EKG Documentation Completion [RC] STAT 01/29/20 22:11 MISC TEST BENITEZ ONLY Routine - Assessment/Plan Last 24 Hours: My Active Orders 01/29/20 21:09 Cardiac Monitoring [RC] . DIRECTED Pulse Oximetry [RC] ASDIRECTED Sodium Chloride 0.9% [Saline Flush] 10 ml FLUSH ASDIRECTED PRN Sodium Chloride 0.9% [Saline Flush] 2.5 ml FLUSH ASDIRECTED PRN Saline Lock Insert [OM.PC] Stat 01/29/20 21:10 EKG Documentation Completion [RC] STAT 01/29/20 22:11 MISC TEST BENITEZ ONLY Routine
[2020-01-29 21:58] LABS: HEMOGLOBIN A1C 13.1 % (4.5-6.2)
[2020-01-29] MEDS ORDERED: Metoclopramide 10 MG/2 ML SDV IVPUSH ONE (22:03)
[2020-01-29] MEDS ORDERED: diphenhydrAMINE 50 MG/ML SDV IVPUSH ONE (22:03)
[2020-01-29] MEDS ORDERED: Lactated Ringers 1,000 ML IV ONE (22:03)
--- NOTE | 2020-01-29 22:03 | CR ---
Chest: Portable view of the chest was obtained. Comparison: Prior chest x-ray of 08/29/19. Heart size and mediastinum are within normal limits for portable technique. Lungs are clear with no acute parenchymal change. Bony structures are grossly intact. Impression: 1. Nothing acute is appreciated on portable chest x-ray. Diagnostic code #1 This report was dictated in MDT
[2020-01-29] MEDS ORDERED: Pantoprazole 40 MG in Sodium Chloride 0.9% 20 ML IVPUSH ONE (22:04)
[2020-01-29 22:07] LABS: BLOOD UREA NITROGEN,BUN 12 mg/dL (7.0-18.0); CARBON DIOXIDE,CO2 28.3 mmol/L (21.0-32.0); CHLORIDE,CL 100 mmol/L (98-107); GLUCOSE RANDOM 218 mg/dL (74-106); LIPASE 129 U/L (73-393); POTASSIUM,K 3.7 mmol/L (3.5-5.1); SODIUM,NA 138 mmol/L (136-145)
[2020-01-29] MEDS ORDERED: Ketorolac 30 MG/ML SDV IVPUSH ONE (22:23)
[2020-01-29] MEDS ORDERED: Iopamidol 755 Mg/ML 100 ML Bottle IVPUSH ONE (22:54)
--- NOTE | 2020-01-29 23:14 | CT ---
INDICATION: Headache TECHNIQUE: CT Head without i.v. contrast. COMPARISON: None FINDINGS: CSF space: Unremarkable for age. Brain: No evidence of mass, acute infarction or hemorrhage is seen. No mass-effect or midline shift is seen. Mild diffuse cortical atrophy is noted. The brain parenchyma is otherwise normal in appearance with preservation of the hale-white matter junction. Calvarium: The visualized paranasal sinuses are well aerated. The mastoid air cells are clear. The visualized orbits are grossly unremarkable. The calvarium is unremarkable in appearance with no fractures identified. IMPRESSION: 1. No evidence of acute infarction, intracranial hemorrhage, or mass-effect seen. Please note that all CT scans at this facility use dose modulation, iterative reconstruction, and/or weight-based dosing when appropriate to reduce radiation dose to as low as reasonably achievable. Dictated by: Chavez Vázquez MD @ 01/29/2020 23:11:54 (Electronically Signed)
--- NOTE | 2020-01-29 23:28 | CT ---
INDICATION: Epigastric pain TECHNIQUE: CT abdomen and pelvis acquired with 100 cc Isovue 370 IV contrast. COMPARISON: August 29, 2019 FINDINGS: Lower chest: Unremarkable. Liver: Unremarkable. Spleen: Unremarkable. Pancreas: Unremarkable. Gallbladder and bile ducts: Unremarkable. Adrenal glands: Unremarkable. Kidneys: Unremarkable. GI tract: Large amount of feces in the colon. Appendix is normal. Vascular structures: Unremarkable. Lymph nodes: Unremarkable. Miscellaneous: Unremarkable. No free air or significant free fluid. Pelvic Organs: Unremarkable. Bones: Unremarkable for age. IMPRESSION: No acute intra-abdominal inflammatory process identified. Large amount of feces in the colon. Please note that all CT scans at this facility use dose modulation, iterative reconstruction, and/or weight-based dosing when appropriate to reduce radiation dose to as low as reasonably achievable. Dictated by Yamini Shaffer MD @ Jan 29 2020 11:27PM Signed by Dr. Yamini Shaffer @ Jan 29 2020 11:27PM
== END 2020-01-30 00:06 | disposition home or self-care (01) ==
LOC: MW.ED 20:39
DX: R51 Headache (principal); R11.10 Vomiting, unspecified; E11.9 Type 2 diabetes mellitus without complications; Z79.84 Long term (current) use of oral hypoglycemic drugs; Z79.899 Other long term (current) drug therapy
CPT/HCPCS: 36415; 70450; 71045; 74177; 80053; 81001; 82962; 83036; 83605; 83690; 83735; 84100; 84484; 85025; 88104; 93005; 96361; 96374; 96375; 99284; C9113; J1200; J1885; J2765; J7120; Q9967; 99283